=== PATIENT | female | born 1995 | race Two or more races ===

== ENCOUNTER → 2021-02-28 08:24 | Outpatient (REF) | payer OTHER, SELFPAY ==
--- NOTE | 2021-02-28 08:42 | ECG_ITS ---
Test Reason : chest pain Blood Pressure : / mmHG Vent. Rate : 071 BPM Atrial Rate : 071 BPM P-R Int : 162 ms QRS Dur : 072 ms QT Int : 380 ms P-R-T Axes : 055 049 040 degrees QTc Int : 412 ms Normal sinus rhythm Nonspecific T wave abnormality Abnormal ECG No previous ECGs available Referred By: Galilea Beltran Electronically Signed By:NANCY CAGE
[2021-02-28 09:04] LABS: Basophils Absolute Auto 0.1 X10*3/uL (0.0-0.2); Basophils Percent Auto 0.9 % (0-2); Eosinophils Absolute Auto 0.2 X10*3/uL (0.0-0.4); Hematocrit 38.2 % (37-47); Hemoglobin 12.9 g/dl (12.0-16.0); Imm Gran Abs Auto 0.02 X10*3/uL (0.00-0.03); Imm Gran Pct Auto 0.3 % (0.0-0.4); Lymphocytes Absolute Auto 2.1 X10*3/uL (1.2-4.9); Lymphocytes Percent Auto 31.5 % (20-40); MANUAL DIFF FLAG NO; Mean Corpuscular HGB Conc 33.8 g/dl (31.0-35.0); Mean Corpuscular Hemoglobin 29.3 pg (27.0-33.0); Mean Corpuscular Volume 86.8 fL (80-98); Mean Platelet Volume 9.6 fL (9.4-12.3); Monocytes Absolute Auto 0.5 X10*3/uL (0.1-1.2); Monocytes Percent Auto 7.1 % (2-11); Neutrophils Absolute Auto 3.8 X10*3/uL (2.0-8.3); Neutrophils Percent Auto 57.2 % (45-73); Platelet Count 334 X10*3/uL (160-400); Red Cell Distribution Width 12.4 % (11.0-16.0); White Blood Count 6.6 X10*3/uL (4.8-10.8)
[2021-02-28 09:31] LABS: Alanine Aminotransferase 17 U/L (0-31); Albumin Level 4.3 g/dL (3.5-5.0); Alkaline Phosphatase 87 U/L (39-117); Anion Gap 11 (12-20); Aspartate Amino Transferase 16 U/L (5-31); Bilirubin Total 0.9 mg/dL (0.0-1.0); Blood Urea Nitrogen 10 mg/dL (9-16); Calcium 9.4 mg/dL (8.4-10.2); Carbon Dioxide 23 mmol/L (22-29); Chloride 109 mmol/L (96-108); Cholesterol 179 mg/dL; Estimated Glomerular Filt Rate > 60; Glucose Fasting 100 mg/dL (60-99); HDL Cholesterol 34 mg/dL; LDL Cholesterol Calculated 122 mg/dl; Sodium 139 mmol/L (135-145); Total Protein 6.7 g/dL (6.5-8.0); Triglycerides 115 mg/dL
[2021-02-28 09:52] LABS: Thyroid Stimulating Hormone 1.43 uIU/mL (0.32-4.0)
[2021-03-04 08:37] LABS: Vitamin D 25-OH, D2 <4 ng/mL; Vitamin D 25-OH, D3 16 ng/mL; Vitamin D 25-OH, Total 16 ng/mL (30-100)
== END ==
LOC: HO.CARD 08:24
PROVIDERS: PCP Internal Medicine; Visit Provider Internal Medicine
DX: R07.9 Chest pain, unspecified (principal); E66.9 Obesity, unspecified; Z68.33 Body mass index [BMI] 33.0-33.9, adult; E78.5 Hyperlipidemia, unspecified; D64.9 Anemia, unspecified; E55.9 Vitamin D deficiency, unspecified
CPT/HCPCS: 36415; 80053; 80061; 82306; 84443; 85025; 93005

== ENCOUNTER → 2021-04-17 09:55 | Outpatient (REF) | payer OTHER, SELFPAY ==
--- NOTE | 2021-04-17 10:01 | CA_ITS ---
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 The calculated ejection fraction is 63% by biplane method. - There is mild pulmonic valve regurgitation. Findings Left Ventricle Normal left ventricular cavity size. There is normal left ventricular wall thickness. The left ventricular systolic function is normal. The calculated ejection fraction is 63% by biplane method. There is no evidence of regional wall motion abnormalities. Diastolic function is normal for age. Right Ventricle Normal right ventricular cavity size and systolic function. Atria Both atria are normal in size. Aortic Valve There is a normal trileaflet aortic valve. There is no aortic valve stenosis. There is no aortic valve regurgitation. Mitral Valve The mitral valve appears normal. There is trace mitral valve regurgitation. There is no mitral valve stenosis. Pulmonic Valve The pulmonic valve was not well visualized. There is mild pulmonic valve regurgitation. Tricuspid Valve Normal tricuspid valve structure. There is trace tricuspid valve regurgitation. The pulmonary artery systolic pressure is normal. Great Vessels The aortic annulus, sinuses of valsalva, and asc aorta are normal in size. Venous The inferior vena cava is normal in size and collapses greater than 50% with inspiration. Pericardium/Pleural There is no evidence of pericardial effusion. Prior Study Comparison Changes noted compared to prior study dated: 05/05/2019. Pulmonic regurgitation less prominent. Measurements 2D Linear Measurements IVSd: 0.91 0.6-0.9/0.6-1.0 cm LVIDd: 4.56 3.9-5.3/4.2-5.9 cm LVIDd Index: 2.44 2.4-3.2/2.2-3.1 cm/m2 LVIDs: 3.07 2.0-3.6 cm LVPWd: 0.95 0.7-1.1 cm Ao Root: 2.30 2.1-3.5 cm LA Diam: 3.60 2.7-3.8/3.0-4.0 cm LAIDs Index: 1.93 1.5-2.3 cm/m2 LV Mass: 175.94 67-162/88-224 g LV Mass Index: 94.09 43-95/49-115 g/m2 LVOT Diam: 1.90 3.0+(-)1.3 cm 2D Systolic Function EF 4C: 65.90 >55% EF 2C: 59.60 >55% EF BiP: 62.60 >55% Mitral Valve MV Pk E: 0.86 MV PK A: 0.36 MV Decel Time: 168.00 E/A: 2.40 E'Lateral: 13.20 E'Medial: 10.20 E/E' Med: 8.40 E/E' Lat: 6.50 PHT: 49.00 MVA PHT: 4.49 Decel [place]: 5.10 Aortic Valve AoV Pk Rodolfo: 1.10 AoV Pk Grad: 5.00 LVOT LVOT Pk Rodolfo: 0.76 LVOT Mn Rodolfo: 0.52 LVOT VTI: 0.18 LVOT Pk Grad: 2.00 LVOT Mn Grad: 1.00 LVOT Diam: 1.90 LVOT Area: 2.84 Diastolic Function MV Pk E: 0.86 MV Pk A: 0.36 E/A: 2.40 E'Medial: 10.20 E/E' Med: 8.40 E' Laterial: 13.20 E/E' Lat: 6.50 Right Ventricle TAPSE (mm): 2.54 Tricuspid Valve TR Pk Rodolfo: 2.06 TR Pk Grad: 17.00 RA Press: 3.00 RVSP: 20.00 Great Vessels Aorta Ao Root-2D: 2.30 2.0-3.7 cm Ao Asc: 2.50 2.1-3.4 cm Updated in Other Vendor System with Status of Final Chay Beal MD electronically signed on 04/17/2021 12:14:57 PM with status of Final
== END ==
LOC: HO.CARD 09:55
PROVIDERS: Visit Provider Internal Medicine
DX: I37.1 Nonrheumatic pulmonary valve insufficiency (principal)
CPT/HCPCS: 93306

== ENCOUNTER → 2021-04-19 10:04 | Outpatient (BNVA) | payer OTHER, SELFPAY | PROVIDERS: PCP Internal Medicine; Referring Provider Internal Medicine; Visit Provider Internal Medicine Cardiovascular Disease | DX: I37.1 Nonrheumatic pulmonary valve insufficiency (principal); R07.2 Precordial pain | CPT/HCPCS: 99202 ==

== ENCOUNTER 2022-04-30 09:06 | Outpatient (REF) | payer OTHER, SELFPAY ==
--- NOTE | ~2022-04-30 | XR_ITS ---
EXAMINATION: XR HAND WRIST, LEFT CLINICAL INFORMATION: M67.439 - Ganglion, unspecified wrist COMPARISON: None TECHNIQUE: 3 large [id number] images to include the hand and wrist are obtained along with a navicular view of the wrist. There are total of 4 views. FINDINGS: Normal bony mineralization. No acute or healing fracture, dislocation, destructive process. Ulnar variance is neutral. There is no joint narrowing or erosive change or chondrocalcinosis. Incidental bone island is seen distal pole carpal navicular. There is no visible soft tissue nodule dorsum left breast. No bony exostosis. XR/XR hand wrist LT IMPRESSION: Normal study.
== END 2022-04-30 09:07 | disposition home or self-care (01) ==
LOC: HO.XRAY 09:06
PROVIDERS: PCP Internal Medicine; Visit Provider Internal Medicine
DX: M67.432 Ganglion, left wrist (principal)
CPT/HCPCS: 73110; 73130

== ENCOUNTER 2023-02-25 10:57 | Outpatient (AMB) | payer OTHER, SELFPAY ==
--- NOTE | 2023-02-25 11:02 | A.OFFVIS_ITS ---
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 Patient reports that she noticed a lump at the top of her wrist sometime in July. Denies injury. She was seen by PCP who told her lump will go away on its own. Currently lump is growing in size and her pain is getting worse. She will have frequent numbness in her whole hand. No previous tx. 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 She states she has worsened pain and a growing lump in her wrist. She also c/o intermittent numbness in her hand. She denies any recent injury and has not had any treatment in the past. [facility] Medical History (Updated 02/25/23 @ 12:11 by Tyler Tidwell PA-C) Ganglion cyst of wrist Hypovitaminosis D Physical exam Chest pain Class 1 obesity with body mass index (BMI) of 33.0 to 33.9 in adult GABRIEL (generalized anxiety disorder) Severe recurrent depression with psychosis Pulmonic valve regurgitation Anxiety and depression Surgical History H/O heart surgery History of ankle surgery Family History Father No problems noted. Mother Depression Mental health disorder Diabetes mellitus Social History Housing: Apartment Alcohol intake: never Patient Tobacco Use Status: Never used Tobacco Tobacco use type: Cigarette e-Cigarette/Vaping Use: Never Used Second Hand Smoke Exposure: No Substance Use Type: Marijuana service: No Current occupational status: unemployed Cognitive needs: No Hearing needs: No Vision needs: No Review of Systems Const All systems reviewed & are unremarkable except as noted in HPI and below Physical Exam Vital Signs: BMI result Body Mass Index 30.1 Const General: cooperative, healthy appearing, comfortable, no acute distress, well developed and alert Orientation/consciousness: patient oriented x3 HEENT Head: Yes normal to inspection, Yes normocephalic and Yes atraumatic Eyes General: appearance normal, both eyes and all related structures Resp Effort & Inspection: normal respiratory effort and able to speak in complete sentences Cardio Rate: regular rate Peripheral pulses: Peripheral pulses 2+ throughout GI Palpation (GI): Soft to palpation Skin Lesions: no lesions Rashes: no rashes Neuro General: patient oriented x3 Extrem Other: Left wrist: Skin intact. There is a marble sized mass along the volar aspect of the wrist in line with the base of the thumb along the radial aspect of the wrist. The mass is firm and mobile. No tenderness to palpation. NVI. Assessment & Plan Assessment & Plan (1) Ganglion cyst of wrist: Code(s): M67.439 - Ganglion, unspecified wrist Qualifiers: Laterality: left Qualified Code(s): M67.432 - Ganglion, left wrist (2) Paresthesia and pain of left extremity: Code(s): M79.609 - Pain in unspecified limb; R20.2 - Paresthesia of skin Plan An EMG/nerve conduction study was ordered at this time to further evaluate the etiology of her numbness. She was not displaying any signs or symptoms of numbness on exam today. I did discuss with her the cyst on her wrist. If her EMG study comes back negative, we can discuss excision ganglion cyst of the left wrist. If it is positive for carpal tunnel like syndrome, we can discuss CTR with ganglion cyst excision. We will have her see with Dr. Esparza for a follow-up to determine this. She is content with this plan. Orders: Orders NE electromyogram (EMG) Today R20.0 - Anesthesia of skin, R20.2 - Paresthesia of skin NE nerve conduction velocity Today R20.0 - Anesthesia of skin, R20.2 - Paresthesia of skin Patient Instructions: Scribed for Tyler Tidwell PA-C, by Armin Godfrey medical clerical assistant, on 02/25/2023 at 11:00 AM EST. ITyler PA-C, have personally reviewed and agree with the information entered by the scribe. Coding Level of Care Code New Pt Level 3 (49657) Diagnoses Ganglion of left wrist M67.432 Laterality: left Paresthesia and pain of left extremity M79.609; R20.2
[2023-02-25 11:03] VITALS: BMI 30.1
== END 2023-02-25 11:53 | disposition home or self-care (01) ==
PROVIDERS: PCP Internal Medicine; Visit Provider Physician Assistant
DX: M67.432 Ganglion, left wrist (principal); M25.532 Pain in left wrist; R20.2 Paresthesia of skin
CPT/HCPCS: 99203

== ENCOUNTER → 2023-02-25 10:57 | Outpatient (BNVA) | payer OTHER, SELFPAY | PROVIDERS: PCP Internal Medicine; Visit Provider Physician Assistant ==

== ENCOUNTER 2023-03-01 09:20 | Outpatient (REF) | payer OTHER, SELFPAY ==
--- NOTE | 2023-03-01 09:22 | EMG_ITS ---
Chief complaint: 6 months of left hand pain, numbness, tingling. Also has a ganglion cyst on left dorsal wrist. Reason for referral: Evaluate for neuropathy Referred by: Tyler ANDERSON Procedure done: Left upper extremity NCS/EMG Precautions and/or limitations: None The limb temperature was monitored continuously and remained between 32-36 degrees C during the performance of the NCS. Nerve Conduction Studies Anti Sensory Summary Table ?Stim Site NR Onset (ms) Norm Onset (ms) Peak (ms) Norm Peak (ms) O-P Amp (?V) Norm O-P Amp Site1 Site2 Delta-0 (ms) Dist (cm) Rodolfo (m/s) Norm Rodolfo (m/s) Left Median Anti Sensory (2nd Digit) Wrist ? 2.4 3.0 <3.6 89.9 >10 Wrist 2nd Digit 2.4 14.0 58 Left Ulnar Anti Sensory (5th Digit) Wrist ? 2.3 2.7 <3.7 65.1 >15.0 Wrist 5th Digit 2.3 14.0 61 Motor Summary Table ?Stim Site NR Onset (ms) Norm Onset (ms) O-P Amp (mV) Norm O-P Amp iAmp (mV) Amp (1st) (%) Site1 Site2 Delta-0 (ms) Dist (cm) Rodolfo (m/s) Norm Rodolfo (m/s) Left Median Motor (Abd Poll Brev) Wrist ? 3.0 <3.9 10.4 >4.5 12.1 100.0 Elbow Wrist 3.0 19.0 63 >45 Elbow ? 6.0 10.8 13.3 103.8 Left Ulnar Motor (Abd Dig Minimi) Wrist ? 2.2 <3.0 7.1 >5 7.9 100.0 B Elbow Wrist 3.2 18.0 56 >45 B Elbow ? 5.4 6.1 6.9 85.9 A Elbow B Elbow 1.5 10.0 67 >45 A Elbow ? 6.9 5.8 6.6 81.7 Comparison Summary Table ?Stim Site NR Peak (ms) Norm Peak (ms) P-T Amp (?V) Site1 Site2 Delta-P (ms) Norm Delta (ms) Left Median/Radial Dig I Comparison (Digit 1 - 10cm) Median ? 2.3 <2.9 205.2 Median Radial 0.1 Radial ? 2.4 <2.8 21.5 EMG ?Side Muscle Nerve Root Ins Act Fibs Psw Amp Dur Poly Recrt Int Pat Comment Left 1stDorInt Ulnar C8-T1 Nml Nml Nml Nml Nml 0 Nml Complete Left FlexCarRad Median C6-7 Nml Nml Nml Nml Nml 0 Nml Complete Left Biceps Musculocut C5-6 Nml Nml Nml Nml Nml 0 Nml Complete Left Triceps Radial C6-7-8 Nml Nml Nml Nml Nml 0 Nml Complete Left Deltoid Axillary C5-6 Nml Nml Nml Nml Nml 0 Nml Complete FINDINGS: All motor and sensory nerves tested showed normal latencies, amplitudes and conduction velocities. Concentric needle EMG was performed in selected muscles of the left upper extremity. Study did not reveal signs of electric abnormalities as shown in the table below. IMPRESSION: 1. This is a normal study. 2. There is no electrodiagnostic evidence for median neuropathy, ulnar neuropathy, brachial plexopathy, or cervical radiculopathy. Thank you for your kind referral. Charlotte Barnett MD, GINNY Board Certified, [place] Board [employer] and Rehabilitation (ABPMR) Board Certified, [place] Board of Electrodiagnostic Medicine (ABEM) CODIN [id number] MTDD
== END 2023-03-01 09:21 | disposition home or self-care (01) ==
LOC: HO.NEURO 09:20
PROVIDERS: PCP Internal Medicine; Visit Provider Physician Assistant
DX: R20.0 Anesthesia of skin (principal); R20.2 Paresthesia of skin
CPT/HCPCS: 95886; 95909

== ENCOUNTER → 2023-03-01 09:22 | Outpatient (BNV) | payer OTHER, SELFPAY | PROVIDERS: PCP Internal Medicine; Visit Provider Physical Medicine & Rehabilitation | DX: M79.642 Pain in left hand (principal); M67.442 Ganglion, left hand | CPT/HCPCS: 95886; 95909 ==

== ENCOUNTER 2023-04-01 13:04 | Outpatient (AMB) | payer OTHER, SELFPAY ==
[2023-04-01 13:08] VITALS: BMI 30.1
--- NOTE | 2023-04-01 13:08 | A.OFFVIS_ITS ---
Intake Vital Signs 04/01/23 13:08 Height 5 ft 3 in Weight 170 lb BMI 30.1 Intake Visit Reasons: OV, EMG review Intake Note: Vee is a 27 year old right hand dominant female who presents today for a EMG review of her left wrist. Allergies No Known Allergies [No Known Allergies*] Allergy (Verified 04/01/23 13:11) HPI OV, EMG review HPI Details 27-year-old female who [facility] a EMG review of left wrist. She denies n/t but continues to have pain in the wrist with pushing and lifting objects. [facility] Medical History (Updated 04/01/23 @ 13:41 by Tyler Tidwell PA-C) Ganglion cyst of wrist Hypovitaminosis D Physical exam Chest pain Class 1 obesity with body mass index (BMI) of 33.0 to 33.9 in adult GABRIEL (generalized anxiety disorder) Severe recurrent depression with psychosis Pulmonic valve regurgitation Anxiety and depression Surgical History H/O heart surgery History of ankle surgery Family History Father No problems noted. Mother Depression Mental health disorder Diabetes mellitus Social History Housing: Apartment Alcohol intake: never Patient Tobacco Use Status: Never used Tobacco Tobacco use type: Cigarette e-Cigarette/Vaping Use: Never Used Second Hand Smoke Exposure: No Substance Use Type: Marijuana service: No Current occupational status: unemployed Cognitive needs: No Hearing needs: No Vision needs: No Review of Systems Const All systems reviewed & are unremarkable except as noted in HPI and below Physical Exam Vital Signs: BMI result Body Mass Index 30.1 Extrem Other: Left wrist: Normal to inspection. She does have pain along the 1st dorsal compartment. Positive Swapnil. Tenderness along the scaffold lunate region. Positive compression test. Results Reviewed Results Reviewed: EMG/NCS 03/01/23 IMPRESSION: 1. This is a normal study. 2. There is no electrodiagnostic evidence for median neuropathy, ulnar neuropathy, brachial plexopathy, or cervical radiculopathy. Assessment & Plan Assessment & Plan (1) TFCC (triangular fibrocartilage complex) injury: Code(s): S69.80XA - Other specified injuries of unspecified wrist, hand and finger(s), initial encounter Qualifiers: Encounter type: initial encounter Laterality: unspecified laterality Qualified Code(s): S69.80XA - Other specified injuries of unspecified wrist, hand and finger(s), initial encounter Plan We discussed options which include a Velcro thumb spica brace which was given to her in the office today. She will wear this with sleeping and with any type of activities. She will also be sent for an MRI arthrogram of the left wrist to further evaluate the ligamentous structures and once this is complete, I will see back for with the results. Orders: Orders MR wrist LT w con Today S69.80XA - Other specified injuries of unspecified wrist, hand and finger(s), initial encounter Coding Level of Care Code Est Pt Level 3 (11591) Diagnoses Injury of triangular fibrocartilage complex (TFCC), unspecified laterality, initial encounter S69.80XA Encounter type: initial encounter Laterality: unspecified laterality
== END 2023-04-01 13:41 | disposition home or self-care (01) ==
PROVIDERS: PCP Internal Medicine; Visit Provider Physician Assistant
DX: S69.82XA Other specified injuries of left wrist, hand and finger(s), initial encounter (principal)
CPT/HCPCS: 99214

== ENCOUNTER → 2023-04-01 13:04 | Outpatient (BNVA) | payer OTHER, SELFPAY | PROVIDERS: PCP Internal Medicine; Visit Provider Physician Assistant | DX: S69.80XD Other specified injuries of unspecified wrist, hand and finger(s), subsequent encounter (principal) | CPT/HCPCS: 99212 ==

== ENCOUNTER 2023-05-17 13:18 | Outpatient (REF) | payer OTHER, SELFPAY ==
--- NOTE | ~2023-05-17 | MR_ITS ---
EXAMINATION: MR WRIST WITH CONTRAST, LEFT (ARTHROGRAM) CLINICAL INFORMATION: Left wrist pain. Numbness and tingling. Intermittent swelling. Evaluate for a ligament tear. COMPARISON: Left wrist fluoroscopic arthrography done earlier the same day. TECHNIQUE: Multisequence MR imaging of the left wrist was performed following the intra-articular administration of contrast on a high-field strength scanner. FINDINGS: TRIANGULAR FIBROCARTILAGE: Intact. INTRINSIC LIGAMENTS: Intact. No contrast extending through the ligaments to suggest tearing. TENDONS/MEDIAN NERVE: Intact. ARTICULAR CARTILAGE/BONE: Intact articular cartilage. No concerning lytic or blastic osseous lesion. No marrow edema or evidence of acute osseous injury. JOINT FLUID/SOFT TISSUES: Complex, lobulated cyst along the dorsal aspect of the scapholunate articulation measuring up to 0.5 x 1.3 x 0.9 cm, consistent with a synovial recess versus ganglion cyst. No contrast within the cyst. MR/MR wrist LT w con IMPRESSION: 1. Synovial recess versus ganglion cyst along the dorsal aspect of the scapholunate articulation measuring up to 1.3 cm. 2. No acute ligamentous injury. 3. No acute osseous abnormality.
--- NOTE | ~2023-05-17 | FL_ITS ---
Left wrist arthrogram Indications: Left wrist pain. Intra-articular gadolinium injection is needed prior to MRI. Procedure: Risks and benefits and possible complications were discussed with the patient and the consent form was signed. The patient was placed prone on the fluoroscopy table with the left wrist slightly flexed.. The left wrist was prepped and draped in normal sterile fashion. 1% buffered lidocaine was used for anesthesia. A 25-gauge hypodermic needle was used to access the left radiocarpal joint. Intra-articular position of the needle within the hip joint was verified using 0.5 cc of Omnipaque 300. A total of 2 mL of gadolinium/saline (1:200) contrast mixture was then injected into the left radiocarpal joint. The needle was then removed and a Band-Aid was applied to the injection site. The patient tolerated the procedure well and was sent for to MRI. There were no immediate complications. FL/FL arthrogram wrist LT Impression: Fluoroscopic left wrist arthrogram The procedure was performed by Stepan Martins PA-C, and supervised by Dr. Bonilla.
[2023-05-17] MEDS: gadobutroL 2 ML VIAL IVPUSH (14:45)
== END 2023-05-17 13:19 | disposition home or self-care (01) ==
LOC: HO.XRAY 13:18
PROVIDERS: PCP Internal Medicine; Visit Provider Physician Assistant
DX: S69.82XA Other specified injuries of left wrist, hand and finger(s), initial encounter (principal)
CPT/HCPCS: 25246; 73115; 73222; A9585

== ENCOUNTER → 2023-05-17 13:30 | Outpatient (BNV) | payer OTHER, SELFPAY | PROVIDERS: PCP Internal Medicine; Visit Provider Student in an Organized Health Care Education/Training Program | DX: M25.532 Pain in left wrist (principal) | CPT/HCPCS: 25246; 73115 ==

== ENCOUNTER → 2024-05-08 13:51 | Outpatient (REF) | payer OTHER, SELFPAY ==
--- NOTE | 2024-05-08 13:54 | CA_ITS ---
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 There is mildly increased left ventricular wall thickness. The visually estimated ejection fraction is between 55-60%. - Normal right ventricular cavity size and systolic function. Findings Left Ventricle Normal left ventricular size and systolic function. There is mildly increased left ventricular wall thickness. The visually estimated ejection fraction is between 55-60%. There is no evidence of regional wall motion abnormalities. Diastolic function is normal for age. Right Ventricle Normal right ventricular cavity size and systolic function. Atria The left atrium is normal in size. Aortic Valve Normal aortic valve structure and function. There is no aortic valve stenosis. There is no aortic valve regurgitation. Mitral Valve The mitral valve appears normal. There is no mitral valve regurgitation. There is no mitral valve stenosis. Pulmonic Valve The pulmonic valve is normal. There is mild pulmonic valve regurgitation. Tricuspid Valve Normal tricuspid valve structure. There is trace tricuspid valve regurgitation. Tricuspid regurgitation envelope is inadequate for calculation of right ventricular systolic pressure. Normal right atrial pressure. Great Vessels All visible segments of the aorta are normal in size. Venous The inferior vena cava is normal in size and collapses greater than 50% with inspiration. Pericardium/Pleural There is no evidence of pericardial effusion. Prior Study Comparison No significant change compared to prior study. Measurements 2D Linear Measurements IVSd: 1.04 0.6-0.9/0.6-1.0 cm LVIDd: 4.31 3.9-5.3/4.2-5.9 cm LVIDd Index: 2.33 2.4-3.2/2.2-3.1 cm/m2 LVIDs: 2.06 2.0-3.6 cm LVPWd: 0.98 0.7-1.1 cm Ao Root: 2.50 2.1-3.5 cm LA Diam: 3.50 2.7-3.8/3.0-4.0 cm LAIDs Index: 1.89 1.5-2.3 cm/m2 LV Mass: 179.89 67-162/88-224 g LV Mass Index: 97.24 43-95/49-115 g/m2 LVOT Diam: 1.90 3.0+(-)1.3 cm 2D Systolic Function EF 4C: 60.00 >55% EF 2C: 59.00 >55% EF BiP: 59.30 >55% Mitral Valve MV Pk E: 0.89 MV PK A: 0.49 MV Decel Time: 195.00 E/A: 1.80 E'Lateral: 13.80 E'Medial: 10.20 E/E' Med: 8.70 E/E' Lat: 6.40 PHT: 57.00 MVA PHT: 3.86 Decel [place]: 4.55 Aortic Valve AoV Pk Rodolfo: 1.20 AoV Mn Rodolfo: 0.67 AoV VTI: 0.24 AoV Pk Grad: 6.00 Aov Mn Grad: 2.00 NAGELO Cont.VTI: 2.45 LVOT LVOT Pk Rodolfo: 0.90 LVOT Mn Rodolfo: 0.57 LVOT VTI: 0.21 LVOT Pk Grad: 3.00 LVOT Mn Grad: 2.00 LVOT Diam: 1.90 LVOT Area: 2.84 Diastolic Function MV Pk E: 0.89 MV Pk A: 0.49 E/A: 1.80 E'Medial: 10.20 E/E' Med: 8.70 E' Laterial: 13.80 E/E' Lat: 6.40 Tricuspid Valve TR Pk Rodolfo: 1.89 TR Pk Grad: 14.00 Great Vessels Aorta Ao Root-2D: 2.50 2.0-3.7 cm Ao Asc: 2.60 2.1-3.4 cm Pulmonary Valve PV Pk Rodolfo: 1.68 Peak PV Grad: 11.00 Updated in Other Vendor System with Status of Final Anton Jim MD electronically signed on 05/10/2024 8:02:49 PM with status of Final
== END ==
LOC: HO.CARD 13:51
PROVIDERS: PCP Internal Medicine; Visit Provider Internal Medicine Cardiovascular Disease
DX: R07.2 Precordial pain (principal); I37.1 Nonrheumatic pulmonary valve insufficiency
CPT/HCPCS: 93306

== ENCOUNTER → 2024-05-08 13:54 | Outpatient (BNV) | payer OTHER, SELFPAY | PROVIDERS: PCP Internal Medicine; Visit Provider Internal Medicine Cardiovascular Disease | DX: I37.1 Nonrheumatic pulmonary valve insufficiency (principal) | CPT/HCPCS: 93306 ==